=== PATIENT | male | born 1960 | race Caucasian/White ===

== ENCOUNTER → 2016-11-05 | Outpatient (CLI) | payer BC ==
--- NOTE | 2016-11-05 10:12 | XR ---
EXAMINATION TYPE: XR Hip Bilateral Complete DATE OF EXAM: 11/05/2016 10:04 AM COMPARISON: NONE HISTORY: Pain There is no evidence of erosive change or acute fracture. Hypertrophic change and narrowing of the joint space noted bilaterally greater on the left there is s clerosis involving the left femoral head and to a lesser extent on the right. Impression 1. No evidence of acute fracture or dislocation. 2. 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 3. Sclerotic changes involving the femoral head and greater on the left can be seen with osteonecrosi s. Recommend MRI of the hips bilaterally to assess for osteonecrosis
--- NOTE | 2016-11-05 10:13 | XR ---
EXAM TYPE: LUMBAR SPINE X RAY SERIES COMPARISON: NONE HISTORY: Pain FINDINGS: Alignment is anatomic. The pedicles are intact. The transverse processes are intact. There is post surgical change in near anatomic alignment. Mild to moderate degenerative change at L3-L4. IMPRESSION: 1. No acute process.
== END | disposition home or self-care (01) ==
LOC: RADXRMAIN 09:17
PROVIDERS: ATTEND Family Medicine
DX: M25.851 Other specified joint disorders, right hip (principal); M25.852 Other specified joint disorders, left hip; M25.551 Pain in right hip; M25.552 Pain in left hip; M54.5 Low back pain
CPT/HCPCS: 72110; 73521

== ENCOUNTER → 2018-04-23 | Outpatient (CLI) | payer BC ==
--- NOTE | 2018-04-23 09:56 | US ---
EXAMINATION TYPE: US carotid duplex BILAT DATE OF EXAM: 04/23/2018 COMPARISON: NONE CLINICAL HISTORY: R07.89 Atypical chest pain. chest pain, elevated sugars EXAM MEASUREMENTS: RIGHT: Peak Systolic Velocity (PSV) cm/sec ----- Right CCA: 84.9 ----- Right ICA: 85.0 ----- Right ECA: 118.2 ICA/CCA ratio: 1.0 RIGHT: End Diastole cm/sec ----- Right CCA: 26.4 ----- Right ICA: 27.8 ----- Right ECA: 19.8 LEFT: Peak Systolic Velocity (PSV) cm/sec ----- Left CCA: 77.0 ----- Left ICA: 93.9 ----- Left ECA: 107.3 ICA/CCA ratio: 1.2 LEFT: End Diastole cm/sec ----- Left CCA: 23.8 ----- Left ICA: 45.1 ----- Left ECA: 19.4 VERTEBRALS (direction of flow): Right Vertebral: Antegrade Left Vertebral: Antegrade Rhythm: Normal Grayscale images show mild eccentric hyperechoic plaque right carotid bulb with minimal plaque left c arotid bulb. Velocity measurements and ratios in visualized portion of both internal carotid arteries is within normal limits. IMPRESSION: Mild right greater than left atherosclerotic change without hemodynamically significant stenosis seen in either internal carotid artery
--- NOTE | 2018-04-23 16:29 | ECHOF ---
Referral Reason:R07.89 Atypical chest pain MEASUREMENTS -------- HEIGHT: 180.3 cm WEIGHT: 97.1 kg BP: IVSd: 0.9 cm (0.6 - 1.1) LVIDd: 3.5 cm (3.9 - 5.3) LVPWd: 1.0 cm (0.6 - 1.1) IVSs: 1.3 cm LVIDs: 1.9 cm LVPWs: 1.4 cm RVIDd: 2.5 cm (< 3.3) LAESV Index (A-L): 29.98 ml/m Ao Diam: 3.6 cm (2.0 - 3.7) LA Diam: 2.9 cm (2.7 - 3.8) AV Cusp: 2.0 cm (1.5 - 2.6) MV E Les: 0.79 m/s MV DecT: 368 ms MV A Les: 0.90 m/s MV E/A Ratio: 0.88 RAP: 5.00 mmHg RVSP: 13.27 mmHg FINDINGS -------- Sinus rhythm. This was a technically adequate study. The left ventricular size is normal. Left ventricular wall thickness is normal. Overall left vent ricular systolic function is normal with, an EF between 55 - 60 %. The right ventricle is normal in size and function. LA is midly dilated 29-33ml/m2. The right atrium is normal in size. The aortic valve is trileaflet, and appears structurally normal. No aortic stenosis or regurgitation. The mitral valve leaflets are mildly thickened. There is trace to mild mitral regurgitation. Trace tricuspid regurgitation present. Right ventricular systolic pressure is normal at < 35 mmHg. There is no evidence of pulmonary hypertension. Trace/mild (physiologic) pulmonic regurgitation. The aortic root is borderline dilated, up to 3.8 cm. Normal inferior vena cava with normal inspiratory collapse consistent with estimated right atrial pre ssure of 5 mmHg. There is no pericardial effusion. CONCLUSIONS -------- 1. Sinus rhythm. 2. This was a technically adequate study. 3. The left ventricular size is normal. 4. Left ventricular wall thickness is normal. 5. Overall left ventricular systolic function is normal with, an EF between 55 - 60 %. 6. LA is midly dilated 29-33ml/m2. 7. The aortic valve is trileaflet, and appears structurally normal. No aortic stenosis or regurgitati on. 8. The mitral valve leaflets are mildly thickened. 9. There is trace to mild mitral regurgitation. 10. Trace tricuspid regurgitation present. 11. Right ventricular systolic pressure is normal at < 35 mmHg. 12. There is no evidence of pulmonary hypertension. 13. Trace/mild (physiologic) pulmonic regurgitation. 14. The aortic root is borderline dilated. 15. There is no pericardial effusion. HOSE CEMENTER: Aldo Purvis RDCS
--- NOTE | 2018-04-23 18:48 | EST ---
EXERCISE STRESS AGE: 57 SEX: Male. HT: 5'11" WT: 214-10/15 PROTOCOL: Nir. STAGE: III DURATION OF EXERCISE: 8:14 HEART RATE REST: 67 BLOOD PRESSURE REST: 155/101 MAXIMUM HEART RATE ACHIEVED: 145 MAXIMUM BLOOD PRESSURE: 184/94 85% MPHR: 140 100% MPHR: 165 METS: 9.9 INDICATIONS: Hypertension. CLINICAL INFORMATION: This is a 57-year-old male patient referred by Dr. Emerson Zayas for evaluation of coronary artery disease. History of hypertension. Patient is on Bystolic. Baseline heart rate 67 beats per minute. Baseline blood pressure 155/100 mmHg. Baseline 12-lead ECG shows normal sinus rhythm, normal cardiac intervals. Patient exercised on a Nir protocol for 8 minutes 14 seconds. He achieved a peak heart rate of 145 beats per minute. His blood pressure response was normal. There was no ECG evidence for ischemia or arrhythmia during exercise up to peak exercise. However, during recovery there was ST depression of 1 mm initially which became almost [address] depression with occasional PVCs. Patient did not complain of any symptoms. IMPRESSION: 1. Abnormal stress test with evidence for ECG changes consistent with ischemia during the recovery phase. 2. Baseline hypertension. MMODL / IJN: [id number] /
== END | disposition home or self-care (01) ==
LOC: RADUSMAIN 09:20
PROVIDERS: ATTEND Family Medicine
DX: I05.9 Rheumatic mitral valve disease, unspecified (principal); I10 Essential (primary) hypertension; I65.23 Occlusion and stenosis of bilateral carotid arteries; R07.89 Other chest pain
CPT/HCPCS: 93017; 93306; 93880